=== PATIENT | female | born 1945 | race Caucasian/White ===

== ENCOUNTER 2024-07-14 20:12 | Observation (INO) | payer MEDICARE ==
[~2024-07-14] VITALS: Ht 160 cm; Wt 67.4 kg
[2024-07-14] MEDS ORDERED: ISOVUE-370 76% 100ML VIAL As Ordered ONE (20:23)
[2024-07-14 20:51] LABS: BASO % 0.5 % (0.0-1.0); EOS # 0.2 10^3/uL (0.0-0.5); EOS % 3.1 % (0.0-3.0); HEMATOCRIT 34.5 % (36.0-47.0); HEMOGLOBIN 11.2 g/dl (12.0-15.5); LYMPH # 1.4 10^3/uL (1.5-5.0); LYMPH % 21.4 % (24.0-44.0); MEAN CORPUSCULAR HEMOGLOBIN 26.2 pg (27.0-33.0); MEAN CORPUSCULAR HGB CONC 32.5 g/dl (32.0-36.5); MEAN CORPUSCULAR VOLUME 80.6 fl (80.0-96.0); MONO # 0.5 10^3/uL (0.0-0.8); MONO % 7.1 % (2.0-8.0); NEUTROPHILS # 4.4 10^3/uL (1.5-8.5); NEUTROPHILS % 67.6 % (36.0-66.0); PLATELET COUNT, AUTOMATED 199 10^3/uL (150-450); RED BLOOD COUNT 4.28 10^6/uL (4.00-5.40); WHITE BLOOD COUNT 6.5 10^3/uL (4.0-10.0)
[2024-07-14 21:04] LABS: INR 0.92; PROTHROMBIN TIME 12.7 SECONDS (12.5-14.5)
[2024-07-14 21:13] LABS: CALCIUM LEVEL 9.1 MG/DL (8.3-10.6); CREATININE FOR GFR 0.66 MG/DL (0.55-1.30); GLOMERULAR FILTRATION RATE 88.1 (>32); POTASSIUM SERUM 3.8 MMOL/L (3.5-5.1)
[2024-07-15] MEDS ORDERED: VITA200048 PO (00:25)
[2024-07-15] MEDS ORDERED: COQ150CH PO (00:25)
[2024-07-15] MEDS ORDERED: MAGN250T7 PO (00:25)
[2024-07-15] MEDS ORDERED: VITA100T59 PO (00:25)
[2024-07-15] MEDS ORDERED: EQL1CAP9 PO (00:25)
[2024-07-15] MEDS ORDERED: HOME MED LIST COMPLETE! XX SCH (00:30)
[2024-07-15] MEDS: ATORVASTATIN 20 MG TAB PO SCH (01:04)
[2024-07-15] MEDS: ASPIRIN 81MG CHEW TABLET PO SCH (01:04)
[2024-07-15 03:00] VITALS: TEMP 97.8
[2024-07-15 07:14] LABS: CHOLESTEROL RISK RATIO 5.07 (<5); HDL CHOLESTEROL 42.2 MG/DL (>40); LDL CHOLESTEROL 138.2 MG/DL (<100); NON-HDL-C 171.8 MG/DL
[2024-07-15 07:15] VITALS: BP 119/57; O2SAT 94
[2024-07-15] MEDS: ENOXAPARIN 40MG/0.4ML SYRINGE (J1650 PER 10MG) SC SCH (09:41)
== END 2024-07-15 11:00 | disposition left against medical advice (07) ==
LOC: M ED 20:12 → M ED INP 20:13
PROVIDERS: ADMIT Family Medicine; ATTEND Family Medicine
DX: I63.9 Cerebral infarction, unspecified (principal); I66.8 Occlusion and stenosis of other cerebral arteries; Z53.21 Procedure and treatment not carried out due to patient leaving prior to being seen by health care provider; R29.810 Facial weakness; R53.1 Weakness; G83.21 Monoplegia of upper limb affecting right dominant side; R47.81 Slurred speech
CPT/HCPCS: 36415; 70450; 70496; 70498; 70551; 71045; 80047; 80048; 80061; 85025; 85610; 85730; 86850; 86900; 86901; 93005; 93041; 94760; 96372; 99285; G0378; J1650; Q9967